=== PATIENT | male | born 1995 | race Hispanic/Latino ===

== ENCOUNTER 2017-09-12 14:15 | Emergency (ER) | payer SELFPAY ==
[2017-09-12] MEDS ORDERED: Clindamycin 150 MG CAP ONE (15:03)
[2017-09-12] MEDS ORDERED: Dexamethasone 4 MG TAB ONE (15:04)
[2017-09-12] MEDS ORDERED: Ketorolac Tromethamine 60 MG/2 ML VIAL ONE (15:04)
== END 2017-09-12 15:28 | disposition home or self-care (01) ==
LOC: ERS 14:15
DX: J02.9 Acute pharyngitis, unspecified (principal); J45.909 Unspecified asthma, uncomplicated; F17.290 Nicotine dependence, other tobacco product, uncomplicated
CPT/HCPCS: 87081; 87430; 96372; J1885; J8540

== ENCOUNTER 2024-01-11 02:01 | Emergency (ER) | payer SELFPAY ==
[2024-01-11] MEDS ORDERED: Boostrix 0.5 ML (Tdap) VIAL (>/=7 yrs of age) ONE (02:08)
[2024-01-11 02:30] LABS: #Basophils 0.06 10x3/uL (0.0-0.2); %Basophils 0.4 % (0.0-1.0); %Lymphocytes 31.7 % (21.0-51.0); %Monocytes 6.4 % (0.0-10.0); Hematocrit 42.1 % (42.0-52.0); Hemoglobin 14.3 g/dL (14.0-18.0); Mean Corpuscular Volume 88.4 fL (78.0-98.0); Mean Platelet Volume 10.9 fL (7.4-10.4); Platelet Count 367 10x3/uL (130-400); RBC Distribution Width 11.9 % (11.5-14.5); Red Blood Cell (RBC) Count 4.76 mill/uL (4.70-6.10)
[2024-01-11 02:54] LABS: ALT (SGPT) 23 U/L (8-55); AST (SGOT) 29 U/L (5-34); Albumin 4.4 g/dL (3.5-5.0); Alkaline Phosphatase 49 U/L (40-110); Anion Gap 16 mmol/L (10-20); BUN (Urea Nitrogen) 10 mg/dL (8.9-20.6); Bilirubin, Total 0.5 mg/dL (0.2-1.2); Calc. Creatinine Clearance 0 mL/min (70-130); Calcium 8.9 mg/dL (7.8-10.44); Carbon Dioxide 18 mmol/L (22-29); Chloride 107 mmol/L (98-107); Estimated GFR 95; Globulin 2.9 g/dL (2.4-3.5); Glucose 138 mg/dL (70-105); Protein, Total 7.3 g/dL (6.0-8.3); Sodium 138 mmol/L (136-145)
[2024-01-11] MEDS ORDERED: PROPOFOL 20 ML ONE (05:13)
[2024-01-11] MEDS ORDERED: Sodium Chloride 0.9% 100 ML ONE (05:26)
[2024-01-11] MEDS ORDERED: CEFAZOLIN 2 GM VIAL ONE (05:26)
[2024-01-11] MEDS ORDERED: Iopamidol-370 76% 500 ML MDV (1 ML CHARGE) ONE (10:54)
== END 2024-01-11 09:10 | disposition short-term general hospital (02) ==
LOC: ERS 02:01
DX: S52.572A Other intraarticular fracture of lower end of left radius, initial encounter for closed fracture (principal); S63.005A Unspecified dislocation of left wrist and hand, initial encounter; J45.909 Unspecified asthma, uncomplicated; F17.290 Nicotine dependence, other tobacco product, uncomplicated; V29.91XA Electric (assisted) bicycle rider (driver) (passenger) injured in unspecified traffic accident, initial encounter; Z79.899 Other long term (current) drug therapy
CPT/HCPCS: 25660; 70450; 71260; 72125; 74177; 80053; 85025; 86850; 86900; 86901; 90471; 90715; 96365; 96375; 99152; G0390; J2704; J3490; Q9967